=== PATIENT | male | born 2005 | race Caucasian/White ===

== ENCOUNTER 2024-09-03 06:10 | Emergency (ER) | payer OTHER, SELFPAY ==
[2024-09-03 06:15] VITALS: BP 173/109; PULSE 83; RESP 16; TEMP 36.8; O2SAT 100
--- NOTE | 2024-09-03 06:47 | ED_ITS ---
HPI - Wound/Laceration General Chief Complaint: Wound/Laceration Stated Complaint: laceration to right hand Time Seen by Provider: 09/03/24 06:41 Source: patient Mode of arrival: ambulatory Limitations: no limitations History of Present Illness HPI narrative: Left-hand dominant male presents with laceration he sustained to his right hand while at work. He works at [employer] and was taking decrease trap out. This occurred at a approximately 545 this morning. He does not recall the date of his last tetanus. Bleeding was controlled in triage. He has not yet taken anything for pain prior to arrival. He denies any paresthesias. 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 HEAD: Normocephalic, atraumatic. EYES: Non injected, non icteric ENT: Nares clear, no rhinorrhea or epistaxis. NECK: Supple. CHEST: Speaking in full sentences. No respiratory distress. Brisk capillary refill in 2nd digit. HEART: Regular rate and rhythm. . ABDOMEN: Soft, nondistended. EXTREMITIES: Normal range of motion. 2 cm linear laceration overlying right hand MCP 2nd digit. Patient able to demonstrate full flexion and extension of this digit. SKIN: Warm, dry, no rash. NEURO: No focal deficits. Alert and oriented x3. Sensation intact without paresthesias along bilateral lateral aspects and throughout. PSYCH: Normal mood and affect. Course Vital Signs Vital signs: Vital Signs Temperature 98.2 F 09/03/24 06:15 Pulse Rate 83 09/03/24 06:15 Respiratory Rate 16 09/03/24 06:15 Blood Pressure 173/109 H 09/03/24 06:15 Pulse Oximetry 100 09/03/24 06:15 Temperature 98.2 F 09/03/24 06:15 Pulse Rate 83 09/03/24 06:15 Respiratory Rate 16 09/03/24 06:15 Blood Pressure 173/109 H 09/03/24 06:15 Pulse Oximetry 100 09/03/24 06:15 Procedures Laceration Laceration 1: Date: 09/03/24 Time: 07:00 Site: hand (2nd digit at/overlying MCP) Side (If applicable): right Size (cm): 2 Description: linear Depth: simple, single layer Local Anesthetic: bupivacaine 0.5% Amount of anesthesia used (mL): 2 Pre-repair: wound explored and irrigated ====== Skin Level ====== Skin layer closed with: other (Ethilon) Size (cm): 5-0 Number of sutures: 3 Technique: simple, interrupted ====== Subcutaneous Layer ====== ====== Muscle Layer ====== ====== Tendon Layer ====== MDM - Wound/Laceration MDM Narrative Medical decision making narrative: Left-hand dominant male presents with laceration to his right hand overlying the MCP of the 2nd digit. In the emergency department he is afebrile vital signs notable for hypertension. Bleeding well controlled and wound was explored does not demonstrate involvement of tendon. Laceration repair as above. Patient does not recall last tetanus shot so updated today. Acetaminophen given for analgesia. Discharged home stable condition advised to follow-up in 7-10 days for suture removal. He will likely do this at urgent care. He does not currently have a primary care physician this was provided contact information/referral information for 1. Discussed appropriate wound care. Stable for discharge. Provided work note as well as a metal finger splint to limit flexion over the next 24-48 hours. Differential Diagnosis Differential diagnosis: Likely laceration Discharge Plan Discharge Clinical Impression: Laceration of right hand Patient Disposition: Home, Self-Care Condition: Stable Instructions: Antibiotic Form, Diphtheria/Acellular Pertussis/Tetanus Vaccine (By injection), Care For Your Stitches (ED), Laceration (ED) Additional Instructions: You had 3 stitches/sutures placed. These should be removed in 7-10 days. This can be accomplished at an urgent care, primary care physician, or by returning to the emergency department. Given you do not have a primary care physician the name of the doctors listed below or you can follow-up for this or other issues. Acetaminophen/Tylenol (maximum 4000 mg per day) is safe to take with NSAIDs (ibuprofen/Motrin) for pain relief. Your tetanus shot was updated today. No role for antibiotics. Return to the emergency department if signs and symptoms of infection such as draining pus, fever greater than 100.4? F, spreading / streaking redness. Keep the wound clean warm and dry. Washing with warm soapy water is fine but make sure it is fully dry before applying a new bandage. A metal finger splint over the next day or so can help protect it from being bumped and limit your ability to flex/bend it, but can be removed after that. Do not use hydrogen peroxide or Neosporin. It can be covered with Vaseline/petroleum jelly or an antibiotic cream if you have it but neither necessary. Patient Language: Persian Prescriptions: New acetaminophen 500 mg capsule 1,000 mg PO Q6H PRN (Reason: pain) Qty: 20 0RF ibuprofen 600 mg tablet 600 mg PO TID PRN (Reason: pain) Qty: 20 0RF Follow-up/Referrals: PHYSICIAN NOT ON STAFF,NONSTAFF [Non-Staff] - Gal Lamar MD [Physician] - (Family practice) Stand Alone Forms: Work/School Release IP Time of Disposition: 07:25
[2024-09-03] MEDS: TETANUS,DIPHTHERIA,AC PERTUSSIS ADULT (0.5 ML) BOOSTRIX IM (07:00)
[2024-09-03] MEDS: ACETAMINOPHEN 500 MG TABLET 1000 MG PO (07:00)
== END 2024-09-03 07:37 | disposition home or self-care (01) ==
LOC: ANHED 07:28
PROVIDERS: Emergency Provider Student in an Organized Health Care Education/Training Program
DX: S61.411A Laceration without foreign body of right hand, initial encounter (principal); Z23 Encounter for immunization; W26.8XXA Contact with other sharp object(s), not elsewhere classified, initial encounter
CPT/HCPCS: 12001; 90471; 90715; 99283; A9270; J2004